=== PATIENT | male | born 1995 | race Caucasian/White ===

== ENCOUNTER 2018-06-30 11:45 | Emergency (ER) | payer BC, SELFPAY | END 2018-06-30 12:18 | disposition home or self-care (01) | LOC: ERS 11:45 | DX: M25.562 Pain in left knee (principal); M25.561 Pain in right knee; F17.210 Nicotine dependence, cigarettes, uncomplicated; V43.52XA Car driver injured in collision with other type car in traffic accident, initial encounter | CPT/HCPCS: 99283 ==

== ENCOUNTER 2020-07-19 16:39 | Emergency (ER) | payer SELFPAY ==
--- NOTE | 2020-07-19 17:45 | RAD ---
3 views of the right hand: 07/19/2020 COMPARISON: None HISTORY: Injury, trauma, pain FINDINGS: No fracture or dislocation. No radiopaque foreign body or subcutaneous gas. IMPRESSION: No acute findings.
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
== END 2020-07-19 18:35 | disposition home or self-care (01) ==
LOC: ERS 16:39
DX: S01.81XA Laceration without foreign body of other part of head, initial encounter (principal); S60.221A Contusion of right hand, initial encounter; F17.210 Nicotine dependence, cigarettes, uncomplicated; V89.2XXA Person injured in unspecified motor-vehicle accident, traffic, initial encounter
CPT/HCPCS: 70450

== ENCOUNTER 2020-09-11 10:46 | Emergency (ER) | payer SELFPAY ==
--- NOTE | 2020-09-11 11:57 | RAD ---
EXAM: 3 views of the right ankle HISTORY: Ankle pain COMPARISON: None FINDINGS: 3 views of the right ankle shows no evidence of acute fracture or dislocation. No soft tiss ue swelling is seen. No degenerative changes are present. IMPRESSION: No evidence of acute osseous abnormality.
== END 2020-09-11 12:57 | disposition home or self-care (01) ==
LOC: ERS 10:46
DX: S93.401A Sprain of unspecified ligament of right ankle, initial encounter (principal); W18.42XA Slipping, tripping and stumbling without falling due to stepping into hole or opening, initial encounter